=== PATIENT | female | born 1935 | race Caucasian/White ===

== ENCOUNTER 2018-02-02 13:59 | Inpatient (IN) | payer BC ==
[~2018-02-02] VITALS: Ht 170.2 cm; Wt 107.5 kg
[~2018-02-02 13:59] MED LIST: BENA20TA2 PO
[2018-02-02 14:00] VITALS: BP_SYST 164
[2018-02-02] MEDS ORDERED: NACL 0.9% 1,000 ML IV ONE ×2 (14:45)
[2018-02-02] MEDS ORDERED: VANCOMYCIN HCL 1,000 MG in D5W 250 ML IV ONE (14:45)
[2018-02-02] MEDS ORDERED: PIPERACILLIN/TAZO 3.38 GM in D5W 50 ML IV ONE (14:45)
[2018-02-02] MEDS ORDERED: VANCOMYCIN HCL 1000 MG/VIAL IV ONE (15:15)
[2018-02-02] MEDS ORDERED: PIPERACILLIN/TAZOBACTAM 3.375 GM/VIAL (ZOSYN) IV ONE (15:15)
[2018-02-02 15:33] LABS: BASOPHILS # (AUTO) 0.1 K/uL (0.0-0.2); BASOPHILS % (AUTO) 0.4 % (0.0-2.0); EOSINOPHILS # (AUTO) 0.1 K/uL (0.0-0.4); EOSINOPHILS % (AUTO) 0.9 % (0.0-4.0); HEMATOCRIT 38.6 % (36-48); HEMOGLOBIN 13.2 g/dL (12.0-16.0); LYMPHOCYTES # (AUTO) 1.1 K/uL (1.0-5.5); LYMPHOCYTES % (AUTO) 8.7 % (20.5-51.5); MEAN CORPUSCULAR HEMOGLOBIN 30 pg (27-31); MEAN CORPUSCULAR HGB CONC 34 % (32-36); MEAN CORPUSCULAR VOLUME 87 fL (79.0-98.0); MONOCYTES # (AUTO) 0.7 K/uL (0.0-1.0); MONOCYTES % (AUTO) 5.8 % (1.7-9.3); NEUTROPHILS # (AUTO) 10.8 K/uL (1.8-7.7); NEUTROPHILS % (AUTO) 84.2 % (40.0-70.0); PLATELET COUNT (AUTO) 345 K/uL (130-430); RED BLOOD CELL COUNT(AUTO) 4.45 MIL/uL (4.2-6.2); RED CELL DISTRIBUTION WIDTH 13.3 % (9.0-15.0); WHITE BLOOD COUNT (AUTO) 12.8 K/uL (4.8-10.8)
[2018-02-02 15:36] LABS: ANION GAP 10 (5-15); CALCIUM 8.8 mg/dL (8.4-11.0); CHLORIDE 105 mmol/L (98-107); CREATININE 0.84 mg/dL (0.55-1.30); GLUCOSE 147 mg/dL (70-99); POTASSIUM 3.9 mmol/L (3.5-5.1); SODIUM SERUM 139 mmol/L (136-145); UREA NITROGEN, BLOOD 19 mg/dL (8-21)
[2018-02-02 15:38] LABS: PROTHROMBIN TIME 9.8 SECS (9.5-12.5)
[2018-02-02 15:43] LABS: ALANINE AMINOTRANSFERASE 22 U/L (12-78); ALBUMIN 3.2 g/dL (3.4-4.8); ASPARTATE AMINOTRANSFERASE 20 U/L (10-37); LIPASE 150 U/L (73-393); TOTAL BILIRUBIN 0.5 mg/dL (0.0-1.0)
[2018-02-02] MEDS ORDERED: MULT-1117 (16:42)
[2018-02-02] MEDS ORDERED: VALS320T2 PO (16:42)
[2018-02-02] MEDS ORDERED: BISA-79 PO (16:42)
[2018-02-02] MEDS ORDERED: HYDR-1189 PO (16:42)
[2018-02-02] MEDS ORDERED: POTA20PA4 GT (16:42)
[2018-02-02] MEDS ORDERED: FURO-150 PO (16:42)
[2018-02-02] MEDS ORDERED: IBUP-2101 (16:42)
[2018-02-02] MEDS ORDERED: BENZOCAINE 20% 0.5mL UD SPRAY MM ONE (16:45)
[2018-02-02 17:27] VITALS: BP_SYST 173
[2018-02-02] MEDS ORDERED: cloNIDine HCL 0.1 MG TABLET PO PRN (18:15)
[2018-02-02] MEDS: D5NS 1,000 ML IV SCH (18:36)
[2018-02-02] MEDS: MORPHINE 2 MG/ML INJ. SYRINGE IVP PRN ×2 (19:06→22:23)
[2018-02-02 20:00] VITALS: BP_SYST 148
[2018-02-02] MEDS ORDERED: metroNIDAZOLE 500 mg/NS 200 ML IV ONE (21:09)
[2018-02-02] MEDS ORDERED: LEVOFLOXACIN 500 MG/D5W 100 ML IV ONE (21:10)
[2018-02-02] MEDS: LEVOFLOXACIN 500 MG/D5W 100 ML IV SCH (21:16)
[2018-02-02] MEDS: metroNIDAZOLE 500 mg/NS 100 ML IV SCH (22:20)
[2018-02-03 00:36] VITALS: BP_SYST 144
[2018-02-03] MEDS: D5NS 1,000 ML IV SCH ×2 (05:14→14:19)
[2018-02-03] MEDS: metroNIDAZOLE 500 mg/NS 100 ML IV SCH ×3 (05:14→22:02)
[2018-02-03] MEDS: MORPHINE 2 MG/ML INJ. SYRINGE IVP PRN ×3 (05:19→17:58)
[2018-02-03 08:05] VITALS: BP_SYST 154
[2018-02-03 12:14] VITALS: BP_SYST 155
[2018-02-03] MEDS ORDERED: LIDOCAINE TOPICAL OINT 5%, 35 GM TP PRN (15:45)
[2018-02-03 16:17] VITALS: BP_SYST 133
[2018-02-03 19:10] VITALS: BP_SYST 132
[2018-02-03] MEDS: LEVOFLOXACIN 500 MG/D5W 100 ML IV SCH (21:59)
[2018-02-03] MEDS: TEMAZEPAM 15 MG CAPSULE PO PRN (22:04)
[2018-02-04 00:53] VITALS: BP_SYST 147
[2018-02-04] MEDS: MORPHINE 2 MG/ML INJ. SYRINGE IVP PRN ×3 (02:22→22:39)
[2018-02-04] MEDS: metroNIDAZOLE 500 mg/NS 100 ML IV SCH ×3 (05:02→22:40)
[2018-02-04] MEDS: D5NS 1,000 ML IV SCH ×3 (05:09→20:15)
[2018-02-04] MEDS ORDERED: LIDOCAINE 1% 10 MG/ML, 50 ML MDV INJ ONE (08:30)
[2018-02-04 08:55] VITALS: BP_SYST 138
[2018-02-04 11:03] VITALS: BP_SYST 150
[2018-02-04 11:30] LABS: BASOPHILS # (AUTO) 0.1 K/uL (0.0-0.2); BASOPHILS % (AUTO) 0.8 % (0.0-2.0); EOSINOPHILS # (AUTO) 0.3 K/uL (0.0-0.4); HEMATOCRIT 38.7 % (36-48); HEMOGLOBIN 13.3 g/dL (12.0-16.0); LYMPHOCYTES # (AUTO) 1.4 K/uL (1.0-5.5); LYMPHOCYTES % (AUTO) 16.7 % (20.5-51.5); MEAN CORPUSCULAR HEMOGLOBIN 30 pg (27-31); MEAN CORPUSCULAR HGB CONC 34 % (32-36); MEAN CORPUSCULAR VOLUME 87 fL (79.0-98.0); MONOCYTES # (AUTO) 0.7 K/uL (0.0-1.0); MONOCYTES % (AUTO) 8.1 % (1.7-9.3); NEUTROPHILS # (AUTO) 6.2 K/uL (1.8-7.7); NEUTROPHILS % (AUTO) 70.4 % (40.0-70.0); PLATELET COUNT (AUTO) 323 K/uL (130-430); RED BLOOD CELL COUNT(AUTO) 4.44 MIL/uL (4.2-6.2); WHITE BLOOD COUNT (AUTO) 8.7 K/uL (4.8-10.8)
[2018-02-04 15:03] VITALS: BP_SYST 157
[2018-02-04 20:00] VITALS: BP_SYST 148; BP_SYST 149
[2018-02-04] MEDS: LEVOFLOXACIN 500 MG/D5W 100 ML IV SCH (21:11)
[2018-02-04] MEDS: TEMAZEPAM 15 MG CAPSULE PO PRN (22:40)
[2018-02-05] VITALS (16 sets, daily range): BP systolic 100–177
[2018-02-05] MEDS: D5NS 1,000 ML IV SCH ×2 (02:55→15:42)
[2018-02-05] MEDS: ACETAMINOPHEN 325 MG TABLET PO PRN (04:36)
[2018-02-05] MEDS: metroNIDAZOLE 500 mg/NS 100 ML IV SCH ×3 (05:04→21:36)
[2018-02-05 07:01] LABS: BILIRUBIN,URINE NEGATIVE (NEGATIVE); BLOOD, URINE NEGATIVE (NEGATIVE); CLARITY/URINE CLEAR (CLEAR); COLOR,URINE YELLOW (YELLOW); GLUCOSE,URINE NEGATIVE (NEGATIVE); KETONES,URINE NEGATIVE (NEGATIVE); LEUKOCYTE ESTERASE ,URINE NEGATIVE (NEGATIVE); NITRITE, URINE NEGATIVE (NEGATIVE); PH,URINE 5.5 (5.0-8.0); PROTEIN URINE NEGATIVE (NEGATIVE); UROBILINOGEN,URINE 0.2 (0.2-1.0)
[2018-02-05] MEDS ORDERED: GLYCOPYRROLATE 0.2 MG/ML VIAL IJ ONE (10:56)
[2018-02-05] MEDS ORDERED: KETOROLAC TROMETHAMINE 30 MG VIAL IVP ONE (10:56)
[2018-02-05] MEDS ORDERED: CEFAZOLIN 2 GM IVPB PREMIX 50 ML IV ONE (10:56)
[2018-02-05] MEDS ORDERED: ROCURONIUM BROMIDE 10 MG/ML (ZEMURON) IV ONE (10:56)
[2018-02-05] MEDS ORDERED: METOCLOPRAMIDE HCL 10 MG/2 ML VIAL IVP ONE (10:56)
[2018-02-05] MEDS ORDERED: LR 1,000 ML IV.SOLN IV ONE (10:56)
[2018-02-05] MEDS ORDERED: PROPOFOL 200MG/ 20ML VIAL (DIPRIVAN) IV ONE (10:56)
[2018-02-05] MEDS ORDERED: MIDAZOLAM HCL 5 MG/5 ML VIAL IVP ONE (10:56)
[2018-02-05] MEDS ORDERED: metroNIDAZOLE 500 mg/NS 100 mL IVPB IV ONE (10:56)
[2018-02-05] MEDS ORDERED: fentaNYL CITRATE/PF 100 MCG/2 ML AMP IVP ONE (10:56)
[2018-02-05] MEDS ORDERED: SEVOFLURANE 15 MIN GAS INH ONE (10:56)
[2018-02-05] MEDS ORDERED: DEXAMETHASONE SOD PHOSPHATE 4 MG/ML VIAL IVP ONE (10:56)
[2018-02-05] MEDS ORDERED: BUPIVACAINE /PF 0.5% 30 ML VIAL INJ ONE (10:56)
[2018-02-05] MEDS ORDERED: POLYMYXIN 500,000/BACIT.10,000 UNITS in NS IRR 1 L IR ONE (11:16)
[2018-02-05] MEDS ORDERED: IPRATROPIUM BROM 0.5 MG/2.5 ML VIAL.NEB (ATROVENT) INH ONE ×2 (13:06→13:15)
[2018-02-05] MEDS ORDERED: LevALBUTEROL HCL 1.25 MG/0.5 ML *CONC.* VIAL.NEB (XOPENEX CONC.) INH ONE (13:07)
[2018-02-05] MEDS ORDERED: LEVALBUTEROL HCL 0.63 MG/3 ML VIAL.NEB INH ONE (13:15)
[2018-02-05 13:42] LABS: ANION GAP 8 (5-15); CALCIUM 8.6 mg/dL (8.4-11.0); CHLORIDE 105 mmol/L (98-107); CREATININE 0.71 mg/dL (0.55-1.30); GLUCOSE 127 mg/dL (70-99); SODIUM SERUM 137 mmol/L (136-145); UREA NITROGEN, BLOOD 9 mg/dL (8-21)
[2018-02-05] MEDS ORDERED: fentaNYL CITRATE/PF 100 MCG/2 ML AMP IVP PRN (13:45)
[2018-02-05] MEDS ORDERED: fentaNYL CITRATE/PF 100 MCG/2 ML AMP ONE (13:54)
[2018-02-05] MEDS ORDERED: MIDAZOLAM HCL 2 MG/2 ML VIAL (VERSED) ONE (14:22)
[2018-02-05] MEDS ORDERED: LORazepam 2 MG/ML VIAL ONE (14:57)
[2018-02-05] MEDS ORDERED: MORPHINE 2 MG/ML INJ. SYRINGE ONE ×2 (14:58→16:42)
[2018-02-05] MEDS ORDERED: ONDANSETRON HCL 4 MG/2 ML VIAL IVP ONE (15:15)
[2018-02-05] MEDS ORDERED: LABETALOL 100 MG/ 20ML VIAL IVP PRN (15:15)
[2018-02-05] MEDS ORDERED: MIDAZOLAM HCL 2 MG/2 ML VIAL (VERSED) IVP PRN (15:15)
[2018-02-05] MEDS ORDERED: ONDANSETRON HCL 4 MG/2 ML VIAL IVP PRN (15:30)
[2018-02-05] MEDS ORDERED: LORazepam 2 MG/ML VIAL IVP PRN (17:15)
[2018-02-05] MEDS: MORPHINE 2 MG/ML INJ. SYRINGE IVP PRN ×3 (18:33→23:23)
[2018-02-05] MEDS: FAMOTIDINE PF 20 MG/2 ML VIAL IVP SCH (21:24)
[2018-02-05] MEDS: LEVOFLOXACIN 500 MG/D5W 100 ML IV SCH (21:31)
[2018-02-06] VITALS (19 sets, daily range): BP systolic 122–164
[2018-02-06] MEDS: MORPHINE 2 MG/ML INJ. SYRINGE IVP PRN ×4 (02:06→22:41)
[2018-02-06] MEDS: D5NS 1,000 ML IV SCH ×3 (02:15→22:15)
[2018-02-06 05:53] LABS: BASOPHILS # (AUTO) 0.1 K/uL (0.0-0.2); BASOPHILS % (AUTO) 0.6 % (0.0-2.0); EOSINOPHILS % (AUTO) 0.3 % (0.0-4.0); HEMATOCRIT 36.5 % (36-48); HEMOGLOBIN 12.7 g/dL (12.0-16.0); LYMPHOCYTES # (AUTO) 1.4 K/uL (1.0-5.5); LYMPHOCYTES % (AUTO) 13.5 % (20.5-51.5); MEAN CORPUSCULAR HEMOGLOBIN 30 pg (27-31); MEAN CORPUSCULAR HGB CONC 35 % (32-36); MEAN CORPUSCULAR VOLUME 87 fL (79.0-98.0); MONOCYTES # (AUTO) 0.9 K/uL (0.0-1.0); MONOCYTES % (AUTO) 8.7 % (1.7-9.3); NEUTROPHILS # (AUTO) 7.7 K/uL (1.8-7.7); NEUTROPHILS % (AUTO) 76.9 % (40.0-70.0); PLATELET COUNT (AUTO) 298 K/uL (130-430); RED BLOOD CELL COUNT(AUTO) 4.19 MIL/uL (4.2-6.2); RED CELL DISTRIBUTION WIDTH 13.1 % (9.0-15.0); WHITE BLOOD COUNT (AUTO) 10.1 K/uL (4.8-10.8)
[2018-02-06] MEDS: metroNIDAZOLE 500 mg/NS 100 ML IV SCH ×3 (06:11→22:33)
[2018-02-06] MEDS: FAMOTIDINE PF 20 MG/2 ML VIAL IVP SCH ×2 (08:12→20:49)
[2018-02-06 08:21] LABS: ALANINE AMINOTRANSFERASE 46 U/L (12-78); ALBUMIN 2.7 g/dL (3.4-4.8); ANION GAP 12 (5-15); ASPARTATE AMINOTRANSFERASE 29 U/L (10-37); CALCIUM 8.5 mg/dL (8.4-11.0); CHLORIDE 104 mmol/L (98-107); CREATININE 1.04 mg/dL (0.55-1.30); GLUCOSE 115 mg/dL (70-99); POTASSIUM 3.8 mmol/L (3.5-5.1); SODIUM SERUM 139 mmol/L (136-145); TOTAL BILIRUBIN 0.7 mg/dL (0.0-1.0); UREA NITROGEN, BLOOD 15 mg/dL (8-21)
[2018-02-06] MEDS ORDERED: FUROSEMIDE 20 MG/2 ML VIAL IVP ONE (09:15)
[2018-02-06] MEDS: ACETAMINOPHEN 325 MG TABLET PO PRN (13:55)
[2018-02-06] MEDS: LEVOFLOXACIN 500 MG/D5W 100 ML IV SCH (20:48)
[2018-02-07 00:08] VITALS: BP_SYST 123; BP_SYST 145
[2018-02-07] MEDS: metroNIDAZOLE 500 mg/NS 100 ML IV SCH ×2 (05:09→13:09)
[2018-02-07] MEDS: D5NS 1,000 ML IV SCH (05:09)
[2018-02-07 08:02] VITALS: BP_SYST 149
[2018-02-07] MEDS ORDERED: MINERAL OIL 30 ML UDC PO SCH (09:00)
[2018-02-07] MEDS ORDERED: POLYETHYLENE GLYCOL 3350, 17 GM/ POWD.PACK PO SCH (09:00)
[2018-02-07] MEDS: FAMOTIDINE PF 20 MG/2 ML VIAL IVP SCH (09:54)
[2018-02-07] MEDS: MORPHINE 2 MG/ML INJ. SYRINGE IVP PRN (13:07)
[2018-02-07 15:14] VITALS: BP_SYST 158
[2018-02-07] MEDS ORDERED: POLY17PO4 PO (16:47)
[2018-02-07] MEDS ORDERED: LEVO250T2 PO (16:48)
[2018-02-07] MEDS ORDERED: METR500T PO (16:49)
[2018-02-07 16:55] VITALS: BP_SYST 158
== END 2018-02-07 17:25 | disposition home health service (06) | DRG 356 ==
LOC: SED 13:59 → SMU 16:50 → SIC 02-05 14:50 → STU 02-06 14:53 → SMU 02-07 10:16
PROVIDERS: ADMIT Internal Medicine Hospice and Palliative Medicine; ATTEND Internal Medicine Hospice and Palliative Medicine
PROC: 0BH17EZ Insertion of Endotracheal Airway into Trachea, Via Natural or Artificial Opening (ICD-10-PCS; 2018-02-05)
PROC: 5A1935Z Respiratory Ventilation, Less than 24 Consecutive Hours (ICD-10-PCS; 2018-02-05)
PROC: 0W9F0ZZ Drainage of Abdominal Wall, Open Approach (ICD-10-PCS; principal; 2018-02-05 11:00)
PROC: 0DBQ8ZZ Excision of Anus, Via Natural or Artificial Opening Endoscopic (ICD-10-PCS; 2018-02-05 11:00)
DX: K64.0 First degree hemorrhoids (principal); J96.01 Acute respiratory failure with hypoxia; K92.2 Gastrointestinal hemorrhage, unspecified; K52.1 Toxic gastroenteritis and colitis; I10 Essential (primary) hypertension; E66.01 Morbid (severe) obesity due to excess calories; E11.9 Type 2 diabetes mellitus without complications; K60.2 Anal fissure, unspecified; K62.0 Anal polyp; K64.4 Residual hemorrhoidal skin tags; T39.395A Adverse effect of other nonsteroidal anti-inflammatory drugs [NSAID], initial encounter; S30.1XXA Contusion of abdominal wall, initial encounter; R19.00 Intra-abdominal and pelvic swelling, mass and lump, unspecified site; X58.XXXA Exposure to other specified factors, initial encounter; Y93.89 Activity, other specified; Y99.8 Other external cause status; Y92.89 Other specified places as the place of occurrence of the external cause; Z85.038 Personal history of other malignant neoplasm of large intestine; Z90.49 Acquired absence of other specified parts of digestive tract; Z68.37 Body mass index [BMI] 37.0-37.9, adult
CPT/HCPCS: 36415; 36600; 71045; 76942-TC; 80048; 80053; 81003; 82803-TC; 83051; 83605; 83690-TC; 83880; 84484; 85025; 85610-TC; 85730-TC; 87040-TC; 87070-TC; 87081; 87205-TC; 88108; 88304; 88305; 93005; 93306; 94002; 94003; 94640; 94760; 97116-GP; 97530-GP; J0690; J1100; J1885; J1940; J1956; J2001; J2060; J2250; J2270; J2405; J2543; J2704; J2765; J3010; J3370; J3465; J3490; J7030; J7042; J7120; J7612

== ENCOUNTER 2019-04-19 05:39 | Observation (INO) | payer BC ==
[~2019-04-19] VITALS: Ht 170.2 cm; Wt 98.4 kg
[~2019-04-19 05:39] MED LIST changes: -BENA20TA2 PO; +BENA20TA9 PO; +BISA-79 PO; +FURO-150 PO; +HYDR-1189 PO; +LEVO250T2 PO; +METR500T PO; +MULT-1117; +POLY17PO4 PO; +POTA20PA4 PO; +VALS320T2 PO
[2019-04-19 05:42] VITALS: BP_SYST 188
--- NOTE | 2019-04-19 05:43 | NUR ---
Placed in room 1 . Placed on monitoring and evaluation advisor, blood pressure machine and pulse oximeter. To gown for exam. Side rails up. Report given to Hiram HENRY.
--- NOTE | 2019-04-19 06:00 | NUR ---
Pt came into ER from house around the corner, C/O SOB associated with chest pain radiating from left shoulder down across chest for few weeks. Finally couldn't stand it any longer. No other complaints and or injuries noted. VSS, no s/s of further acute distress. Resting on gurney rails up
--- NOTE | 2019-04-19 06:20 | NUR ---
Portable X Ray bedside, well tolerated
[2019-04-19 06:22] LABS: BASOPHILS # (AUTO) 0.1 K/uL (0.0-0.2); EOSINOPHILS # (AUTO) 0.7 K/uL (0.0-0.4); EOSINOPHILS % (AUTO) 9.3 % (0.0-4.0); HEMATOCRIT 42.1 % (36-48); HEMOGLOBIN 14.6 g/dL (12.0-16.0); LYMPHOCYTES # (AUTO) 1.8 K/uL (1.0-5.5); MEAN CORPUSCULAR HEMOGLOBIN 30 pg (27-31); MEAN CORPUSCULAR HGB CONC 35 % (32-36); MEAN CORPUSCULAR VOLUME 88 fL (79.0-98.0); MONOCYTES # (AUTO) 0.7 K/uL (0.0-1.0); MONOCYTES % (AUTO) 9.9 % (1.7-9.3); NEUTROPHILS # (AUTO) 3.8 K/uL (1.8-7.7); NEUTROPHILS % (AUTO) 53.8 % (40.0-70.0); PLATELET COUNT (AUTO) 266 K/uL (130-430); RED BLOOD CELL COUNT(AUTO) 4.79 MIL/uL (4.2-6.2); RED CELL DISTRIBUTION WIDTH 13.9 % (9.0-15.0); WHITE BLOOD COUNT (AUTO) 7.1 K/uL (4.8-10.8)
--- NOTE | 2019-04-19 06:37 | NUR ---
Dr. Tao bedside for Pt eval
[2019-04-19 06:43] LABS: ANION GAP 9 (5-15); CALCIUM 9.5 mg/dL (8.4-11.0); CHLORIDE 106 mmol/L (98-107); CREATININE 0.76 mg/dL (0.55-1.30); GLUCOSE 95 mg/dL (70-99); POTASSIUM 4.1 mmol/L (3.5-5.1); SODIUM SERUM 142 mmol/L (136-145); UREA NITROGEN, BLOOD 25 mg/dL (8-21)
[2019-04-19 06:45] LABS: PROTHROMBIN TIME 9.9 SECS (9.5-12.5)
[2019-04-19] MEDS ORDERED: NITROGLYCERIN 0.4 MG TAB.SUBL SL ONE (06:45)
[2019-04-19 06:48] LABS: ALANINE AMINOTRANSFERASE 24 U/L (12-78); ALBUMIN 3.4 g/dL (3.4-4.8); ASPARTATE AMINOTRANSFERASE 16 U/L (10-37); TOTAL BILIRUBIN 0.7 mg/dL (0.0-1.0)
--- NOTE | 2019-04-19 06:53 | NUR ---
1st dose adm of nitro, well tolerated. Will check for effectiveness in 5 min
[2019-04-19] MEDS ORDERED: IOHEXOL 350 mgI/mL, 150 ML INFUS..BTL IV ONE (08:16)
--- NOTE | 2019-04-19 08:29 | NUR ---
PT BACK FROM CT IN STABLE CONDITION.
[2019-04-19] MEDS ORDERED: KETOROLAC TROMETHAMINE 30 MG VIAL IVP ONE (09:45)
[2019-04-19] MEDS ORDERED: GABA-529 PO (09:59)
[2019-04-19] MEDS ORDERED: OCUVITE PO (09:59)
[2019-04-19] MEDS ORDERED: MELA3TAB64 PO (09:59)
[2019-04-19] MEDS ORDERED: LOSA100T3 PO (09:59)
[2019-04-19] MEDS ORDERED: [UNRECOGNIZED DRUG - CODE] PO (09:59)
[2019-04-19] MEDS ORDERED: SENN8.6T19 PO (09:59)
--- NOTE | 2019-04-19 09:59 | NUR ---
Medication reconciliation completed with information provided by Patient. Any prior medication reconciliation on file was reviewed and corrected.
[2019-04-19] MEDS ORDERED: ASPIRIN 81 MG TAB.CHEW PO ONE (10:15)
--- NOTE | 2019-04-19 10:16 | NUR ---
Patient will be admitted to care of DR. HANNA. Admitted to TELE unit. Belongings list completed. Summary report printed. Report will be given at bedside.
--- NOTE | 2019-04-19 10:45 | NUR ---
Transfer to TELE via ACLS protocol. Licensed nurse present. IV present no signs or symptoms of infiltration.
[2019-04-19 10:47] VITALS: BP_SYST 169
--- NOTE | 2019-04-19 10:47 | NUR ---
ADMISSION NOTE Received patient from ER via aime, received report from CHINYERE HENRY. Patient admitted with diagnosis of CHEST PAIN. Patient oriented to hospital routine, call light, toileting and safety-patient verbalized understanding.
--- NOTE | 2019-04-19 10:50 | NUR ---
REPORT GIVEN TO RN LEVY AT BEDSIDE.
--- NOTE | 2019-04-19 11:00 | NUR ---
ASSUMPTION OF CARE: RECEIVED PT A/A/OX4, DX:DECREASED CARDIAC OUTPUT, R/T CHEST PAIN, VSS, NO C/O PAIN OR DISCOMFORT, BREATH SOUNDS ARE CLEAR, BREATHING UNLABORED, PULSES PALPABLE, IV SITE INTACT, PATENT, NO REDNESS OR SWELLING, ORIENTED TO UNIT, CALL LIGHT PLACED WITHIN REACH, WILL CON'T TO MONITOR AND ASSESS.
[2019-04-19] MEDS ORDERED: GABAPENTIN 100 MG CAPSULE PO ONE (11:15)
[2019-04-19] MEDS ORDERED: LOSARTAN POTASSIUM 50 MG TABLET (COZAAR) PO ONE (11:15)
[2019-04-19] MEDS ORDERED: FUROSEMIDE 40 MG TABLET PO ONE (11:15)
[2019-04-19 12:20] VITALS: BP_SYST 169
--- NOTE | 2019-04-19 12:41 | NUR ---
Cardiac consult called: for Dr. Nur, regarding chest pain, ordered by Dr. Trinh, spoke with Dior.
--- NOTE | 2019-04-19 14:16 | NUR ---
Bone Char Puller Note Patient referred for help with completing an advanced directive. STEEL ERECTOR met with patient at bedside. Patient is alert and oriented. Patient has no family members to make decisions on her behalf. Her son is alive and may have an old POA for health care but does not communicate with patient at all. Patient is certain she would like a DNR order as indicated on this medical record. A POLST would seem to be the best document for patient to complete. Discussed and assisted patient with completion. Left a copy in the front of the chart for Dr Trinh to discuss and sign. Patient lives alone and drives. She would not qualify for [facility] because her income is too high. Patient is lonely. Goes to meetings at congregation a few times a week. STEEL ERECTOR [facility]. Patient has some anxiety and pain. Discussed relaxation and breathing exercises to reduce anxiety and pain, in addition to any medications that may be prescribed. Gave patient my business card. Bone Char Puller will remain available.
--- NOTE | 2019-04-19 15:00 | NUR ---
NURSES NOTES: PT RESTING IN POSITION OF COMFORT, NO S/S OF DISCOMFORT, NO C/O PAIN, ORIENTED TO UNIT, CALL LIGHT PLACED WITHIN REACH, WILL CONT' TO MONITOR AND ASSESS.
[2019-04-19 16:31] VITALS: BP_SYST 154
--- NOTE | 2019-04-19 17:00 | NUR ---
NURSES NOTES: PT REMAINS STABLE, NO SIGNIFICANT CHANGES NOTED, NO C/O PAIN, CALL LIGH PLACED WITHIN REACH, WILL CONT' TO MONITOR AND ASSESS.
--- NOTE | 2019-04-19 19:00 | NUR ---
END OF SHIFT: PT ASLEEP, EASILY AROUSED VIA VERBAL STIMULI, NO C/O PAIN, VSS, EATING WELL, NO DISTRESS, WILL CONT' WITH POC, WILL ENDORSE TO ANIMAL KILLER NURSE.
--- NOTE | 2019-04-19 19:24 | NUR ---
OPENING NOTES Received patient resting in bed, HOB elevated. No signs of acute respiratory distress. Patient requests for pain medication and sleeping pill. Bed alarm refused after patient education on risks and benefits of bed alarm. Bed at lowest position, call light within reach. Oriented patient to plan of care and call light usage. Will continue to monitor.
--- NOTE | 2019-04-19 20:27 | NUR ---
PAGED PAGED DOCTOR HUMPHREY
--- NOTE | 2019-04-19 20:38 | NUR ---
SPOKE TO DR. MCALLISTER. RECEIVED NEW ORDERS FOR TORADOL FOR PAIN AND NO SLEEPING MEDICATIONS, DR. HANNA HELD PATIENT'S MEDICATIONS FOR SLEEP.
[2019-04-19] MEDS: GABAPENTIN 100 MG CAPSULE PO SCH (20:56)
[2019-04-19] MEDS ORDERED: KETOROLAC TROMETHAMINE 15 MG VIAL IVP SCH (21:00)
--- NOTE | 2019-04-19 22:10 | NUR ---
Patient is resting, watching television. Patient seems forgetful and asks again for sleeping medication. Reoriented patient to reason for not being able to give sleeping medication. No signs of acute respiratory distress. Will continue to monitor.
--- NOTE | 2019-04-20 00:16 | NUR ---
Patient is awake, watching television. No signs of acute respiratory distress. Will continue to monitor.
[2019-04-20 01:18] VITALS: BP_SYST 157
--- NOTE | 2019-04-20 02:10 | NUR ---
Patient is resting, eyes closed. No signs of acute respiratory distress. Bed alarm on, call light within reach, bed at lowest position. Will continue to monitor.
--- NOTE | 2019-04-20 04:15 | NUR ---
Patient is asleep comfortably, rise and fall of chest noted. No signs of acute respiratory distress. Will continue to monitor.
--- NOTE | 2019-04-20 07:03 | NUR ---
CLOSING NOTES Patient is resting, watching television. Patient has no signs of acute respiratory distress or SOB at this time. Bed alarm refused after patient verbally understands risks and benefits. Bed at lowest position, call light within reach. All needs met throughout shift. Will endorse care to oncoming shift.
--- NOTE | 2019-04-20 07:55 | NUR ---
INITIAL NOTE RECEIVED PT IN BED, NO S/S OF DISTRESS OR SOB NOTED, PT HAS NO C/O PAIN AT THIS TIME, PT IN STABLE CONDITION. PT AAOX4, VERBAL. IV CATHETER PATENT, NO SIGNS OF INFECTION OR INFILTRATION NOTED, SALINE LOCK. BED AT LOWEST POSITION, CALL LIGHT WITHIN REACH, WILL CONTINUE TO MONITOR PT FOR ANY CHANGES, FALL AND SAFETY PRECAUTIONS IN PLACE.
[2019-04-20 08:25] VITALS: BP_SYST 151
[2019-04-20] MEDS: GABAPENTIN 100 MG CAPSULE PO SCH (08:26)
[2019-04-20] MEDS ORDERED: LOSARTAN POTASSIUM 50 MG TABLET (COZAAR) PO SCH (09:00)
[2019-04-20] MEDS ORDERED: FUROSEMIDE 40 MG TABLET PO SCH (09:00)
--- NOTE | 2019-04-20 10:05 | NUR ---
Nutrition Update Jorge Alberto Scale 17 noted. Pt admitted for chest pain. Diet: 2 gm Na BMI: 34 kg/m2 RD to follow per nutrition care standards.
--- NOTE | 2019-04-20 10:10 | NUR ---
ROUNDS PT IN BED, NO S/S OF DISTRESS OR SOB NOTED, PT HAS NO C/O PAIN AT THIS TIME, PT IN STABLE CONDITION, PT RESTING COMFORTABLY, WILL CONTINUE TO MONITOR PT FOR ANY CHANGES.
[2019-04-20 10:26] VITALS: BP_SYST 131
--- NOTE | 2019-04-20 11:00 | NUR ---
D/C Patient Patient given medication reconciliation form and D/C instructions. Exit Care provided. Patient verbalized understanding. MD discussed with patient the results and treatment provided. Ambulatory with assist for discharge to home. Patient in stable condition, ID band removed. IV catheter removed, intact and dressing applied, no active bleeding. Patient educated on pain management. All belongings sent with patient.Patient's medicaiton given back to her. Pt driving her self home and Dr Trinh and charge nurse made aware.
== END 2019-04-20 11:00 | disposition home or self-care (01) ==
LOC: SED 05:39 → STU 10:12
PROVIDERS: ADMIT Internal Medicine Hospice and Palliative Medicine; ATTEND Internal Medicine Hospice and Palliative Medicine
DX: R07.89 Other chest pain (principal); I10 Essential (primary) hypertension; F17.200 Nicotine dependence, unspecified, uncomplicated; Z86.73 Personal history of transient ischemic attack (TIA), and cerebral infarction without residual deficits; Z98.890 Other specified postprocedural states
CPT/HCPCS: 36415; 71045; 71275; 80053; 83880; 84484; 85025; 85379; 85610; 85730; 93005; 93306; 96374; 96376; 99285; G0378 ×2; J1885 ×2; Q9967

== ENCOUNTER 2021-01-15 06:08 | Emergency (ER) | payer BC ==
[~2021-01-15] VITALS: Ht 170.2 cm; Wt 104.3 kg
[~2021-01-15 06:08] MED LIST changes: -BENA20TA9 PO; -BISA-79 PO; +GABA-529 PO; -HYDR-1189 PO; -LEVO250T2 PO; +LOSA100T3 PO; +MELA3TAB41 PO; -METR500T PO; -MULT-1117; +OCUVITE PO; -POLY17PO4 PO; +SENN8.6T19 PO; -VALS320T2 PO; +[UNRECOGNIZED DRUG - CODE] PO
[2021-01-15 06:12] VITALS: BP_SYST 150
[2021-01-15] MEDS ORDERED: IBUP-1969 PO (06:35)
[2021-01-15] MEDS ORDERED: HYDR-3917 PO (06:49)
[2021-01-15 07:16] VITALS: BP_SYST 150
== END 2021-01-15 07:16 | disposition home or self-care (01) ==
LOC: SED 06:08
DX: G89.29 Other chronic pain (principal); I10 Essential (primary) hypertension; Z79.899 Other long term (current) drug therapy
CPT/HCPCS: 99283

== ENCOUNTER 2021-02-20 12:00 | Emergency (ER) | payer BC ==
[~2021-02-20] VITALS: Ht 170.2 cm; Wt 99.8 kg
[2021-02-20 12:05] VITALS: BP_SYST 111
[2021-02-20] MEDS ORDERED: LIDOINT TP (13:57)
[2021-02-20] MEDS ORDERED: DOCU-144 PO (13:57)
[2021-02-20] MEDS ORDERED: MAGNESIUM CITRATE 300 ML ORAL SOLUTION PO ONE (14:00)
[2021-02-20] MEDS ORDERED: DOCUSATE SODIUM 100 MG CAPSULE PO ONE (14:00)
[2021-02-20 14:26] VITALS: BP_SYST 111
== END 2021-02-20 14:27 | disposition home or self-care (01) ==
LOC: SED 12:00
DX: K64.4 Residual hemorrhoidal skin tags (principal); K59.09 Other constipation; I10 Essential (primary) hypertension; Z79.899 Other long term (current) drug therapy
CPT/HCPCS: 99283

== ENCOUNTER 2021-02-24 10:31 | Emergency (ER) | payer BC ==
[~2021-02-24] VITALS: Ht 170.2 cm; Wt 99.8 kg
[~2021-02-24 10:31] MED LIST changes: +DOCU-144 PO; +LIDOINT TP
[2021-02-24 11:21] VITALS: BP_SYST 165
[2021-02-24] MEDS ORDERED: MAGN296S30 PO (11:38)
[2021-02-24 12:00] VITALS: BP_SYST 152
== END 2021-02-24 12:00 | disposition home or self-care (01) ==
LOC: SED 10:31
DX: K59.00 Constipation, unspecified (principal); I10 Essential (primary) hypertension; Z79.899 Other long term (current) drug therapy
CPT/HCPCS: 99282

== ENCOUNTER 2023-04-15 11:52 | Inpatient (IN) | payer BC ==
[~2023-04-15] VITALS: Ht 170.2 cm; Wt 103.4 kg
[~2023-04-15 11:52] MED LIST changes: +LOSA-415 PO; -LOSA100T3 PO; +MAGN296S8 PO
[2023-04-15 11:54] VITALS: BP_SYST 208; PULSE 109; RESP 18; TEMP 97; O2SAT 98
[2023-04-15] MEDS ORDERED: NACL 0.9% 1,000 ML IV ONE (12:30)
[2023-04-15 13:15] LABS: ANION GAP 7 (5-15); CALCIUM 9.6 mg/dL (8.4-11.0); CARBON DIOXIDE 29 mmol/L (23-29); CHLORIDE 105 mmol/L (98-107); CREATININE 0.65 mg/dL (0.55-1.30); GLUCOSE 91 mg/dL (74-106); POTASSIUM 3.7 mmol/L (3.5-5.1); SODIUM SERUM 141 mmol/L (136-145); UREA NITROGEN, BLOOD 11 mg/dL (8-21)
[2023-04-15 13:17] LABS: BASOPHILS # (AUTO) 0.1 K/uL (0.0-0.2); BASOPHILS % (AUTO) 0.6 % (0.0-2.0); EOSINOPHILS # (AUTO) 0.2 K/uL (0.0-0.4); EOSINOPHILS % (AUTO) 2.5 % (0.0-4.0); HEMOGLOBIN 15.8 g/dL (12.0-16.0); LYMPHOCYTES # (AUTO) 1.4 K/uL (1.0-5.5); LYMPHOCYTES % (AUTO) 16.3 % (20.5-51.5); MEAN CORPUSCULAR HEMOGLOBIN 29 pg (27-31); MEAN CORPUSCULAR HGB CONC 34 % (32-36); MEAN CORPUSCULAR VOLUME 86 fL (79.0-98.0); MONOCYTES # (AUTO) 0.7 K/uL (0.0-1.0); MONOCYTES % (AUTO) 8.1 % (1.7-9.3); NEUTROPHILS # (AUTO) 6.3 K/uL (1.8-7.7); NEUTROPHILS % (AUTO) 72.5 % (40.0-70.0); PLATELET COUNT (AUTO) 291 K/uL (130-430); RED BLOOD CELL COUNT(AUTO) 5.49 MIL/uL (4.2-6.2); RED CELL DISTRIBUTION WIDTH 13.8 % (9.0-15.0); WHITE BLOOD COUNT (AUTO) 8.7 K/uL (4.8-10.8)
[2023-04-15] MEDS ORDERED: LABETALOL HCL 20 MG/4 ML CARTRIDGE IVP ONE (16:15)
[2023-04-15] MEDS ORDERED: hydrALAZINE HCL 20 MG/ML VIAL IVP ONE (17:00)
[2023-04-15] MEDS ORDERED: HYDR12.585 PO (18:03)
[2023-04-15] MEDS ORDERED: TRAZ-251 PO (18:03)
[2023-04-15] MEDS ORDERED: IBUP-1969 PO (18:03)
[2023-04-15] MEDS ORDERED: ESCI20TA38 PO (18:03)
[2023-04-15] MEDS ORDERED: ROSU10TA29 PO (18:03)
[2023-04-15 20:54] VITALS: BP_SYST 155; PULSE 87; RESP 20; TEMP 98.4; O2SAT 95
[2023-04-15] MEDS: NIFEdipine 30 MG TAB.ER.24 PO SCH (22:32)
[2023-04-15] MEDS: HYDROcodone/ACETAMIN 5-325 MG TAB (NORCO/ VICODIN) PO PRN (22:33)
[2023-04-16 00:45] VITALS: BP_SYST 149; PULSE 64; RESP 18; TEMP 96.8; O2SAT 94
[2023-04-16 08:00] VITALS: BP_SYST 127; PULSE 102; RESP 18; TEMP 98.4; O2SAT 97
[2023-04-16] MEDS: NIFEdipine 30 MG TAB.ER.24 PO SCH (08:52)
[2023-04-16] MEDS: HYDROcodone/ACETAMIN 5-325 MG TAB (NORCO/ VICODIN) PO PRN (08:53)
[2023-04-16] MEDS ORDERED: MECLIZINE HCL 25 MG TABLET (ANITVERT) PO ONE (10:45)
[2023-04-16 12:30] VITALS: BP_SYST 141; PULSE 72; RESP 17; TEMP 96.2; O2SAT 93
[2023-04-16 16:37] VITALS: BP_SYST 135; PULSE 74; RESP 17; TEMP 97.3; O2SAT 94
[2023-04-16] MEDS ORDERED: TRAZ-251 PO (19:43)
[2023-04-16] MEDS ORDERED: hydrALAZINE HCL 20 MG/ML VIAL IVP PRN (19:45)
[2023-04-16 20:00] VITALS: O2SAT 95
[2023-04-16] MEDS ORDERED: ZOLPIDEM TARTRATE 5 MG TABLET PO PRN (20:00)
[2023-04-16] MEDS ORDERED: traZODone HCL 50 MG TABLET (DESYREL) PO PRN (20:00)
[2023-04-16 20:45] VITALS: BP_SYST 147; PULSE 75; RESP 20; TEMP 97.8; O2SAT 95
[2023-04-16] MEDS: MECLIZINE HCL 25 MG TABLET (ANITVERT) PO SCH (20:55)
[2023-04-16] MEDS: LOSARTAN POTASSIUM 50 MG TABLET (COZAAR) PO SCH (20:56)
[2023-04-16] MEDS: NACL 0.9% 1,000 ML IV SCH (21:00)
[2023-04-17] VITALS: BP_SYST 129; PULSE 80; RESP 20; TEMP 98.3; O2SAT 92
[2023-04-17] MEDS: NACL 0.9% 1,000 ML IV SCH ×2 (05:32→15:49)
[2023-04-17] MEDS: HYDROcodone/ACETAMIN 5-325 MG TAB (NORCO/ VICODIN) PO PRN ×2 (06:37→19:50)
[2023-04-17 07:40] VITALS: BP_SYST 157; PULSE 84; RESP 18; TEMP 97.3; O2SAT 95
[2023-04-17] MEDS: NIFEdipine 30 MG TAB.ER.24 PO SCH (08:33)
[2023-04-17] MEDS: LOSARTAN POTASSIUM 50 MG TABLET (COZAAR) PO SCH (08:34)
[2023-04-17] MEDS: MECLIZINE HCL 25 MG TABLET (ANITVERT) PO SCH ×2 (08:34→20:45)
[2023-04-17 11:21] LABS: BASOPHILS % (AUTO) 0.6 % (0.0-2.0); EOSINOPHILS # (AUTO) 0.3 K/uL (0.0-0.4); EOSINOPHILS % (AUTO) 3.8 % (0.0-4.0); HEMATOCRIT 44.5 % (36-48); HEMOGLOBIN 14.7 g/dL (12.0-16.0); LYMPHOCYTES # (AUTO) 1.6 K/uL (1.0-5.5); LYMPHOCYTES % (AUTO) 22.1 % (20.5-51.5); MEAN CORPUSCULAR HEMOGLOBIN 29 pg (27-31); MEAN CORPUSCULAR HGB CONC 33 % (32-36); MEAN CORPUSCULAR VOLUME 86 fL (79.0-98.0); MONOCYTES # (AUTO) 0.7 K/uL (0.0-1.0); MONOCYTES % (AUTO) 9.8 % (1.7-9.3); NEUTROPHILS # (AUTO) 4.6 K/uL (1.8-7.7); NEUTROPHILS % (AUTO) 63.7 % (40.0-70.0); PLATELET COUNT (AUTO) 304 K/uL (130-430); RED BLOOD CELL COUNT(AUTO) 5.16 MIL/uL (4.2-6.2); RED CELL DISTRIBUTION WIDTH 13.6 % (9.0-15.0); WHITE BLOOD COUNT (AUTO) 7.2 K/uL (4.8-10.8)
[2023-04-17 11:37] LABS: ALANINE AMINOTRANSFERASE 25 U/L (12-78); ALBUMIN 2.8 g/dL (3.4-4.8); ANION GAP 7 (5-15); ASPARTATE AMINOTRANSFERASE 16 U/L (10-37); CALCIUM 8.8 mg/dL (8.4-11.0); CARBON DIOXIDE 26 mmol/L (23-29); CHLORIDE 103 mmol/L (98-107); CREATININE 0.58 mg/dL (0.55-1.30); GLUCOSE 100 mg/dL (74-106); POTASSIUM 3.8 mmol/L (3.5-5.1); SODIUM SERUM 136 mmol/L (136-145); TOTAL BILIRUBIN 0.9 mg/dL (0.0-1.0); TOTAL PROTEIN, SERUM 5.9 g/dL (6.4-8.3); UREA NITROGEN, BLOOD 15 mg/dL (8-21)
[2023-04-17 12:16] VITALS: BP_SYST 164; PULSE 83; RESP 17; TEMP 97.6; O2SAT 94
[2023-04-17 17:49] VITALS: BP_SYST 151; PULSE 81; RESP 17; TEMP 98.7; O2SAT 95
[2023-04-17 20:00] VITALS: BP_SYST 143; PULSE 83; RESP 18; TEMP 98.4; O2SAT 94
[2023-04-18] VITALS: BP_SYST 138; PULSE 94; RESP 18; TEMP 97.7; O2SAT 93
[2023-04-18 01:12] VITALS: O2SAT 96
[2023-04-18] MEDS: HYDROcodone/ACETAMIN 5-325 MG TAB (NORCO/ VICODIN) PO PRN ×3 (01:52→21:31)
[2023-04-18] MEDS: NACL 0.9% 1,000 ML IV SCH ×2 (01:53→11:45)
[2023-04-18 04:52] LABS: BASOPHILS # (AUTO) 0.1 K/uL (0.0-0.2); BASOPHILS % (AUTO) 0.7 % (0.0-2.0); EOSINOPHILS # (AUTO) 0.4 K/uL (0.0-0.4); EOSINOPHILS % (AUTO) 4.3 % (0.0-4.0); HEMATOCRIT 44.2 % (36-48); HEMOGLOBIN 14.4 g/dL (12.0-16.0); LYMPHOCYTES # (AUTO) 1.5 K/uL (1.0-5.5); LYMPHOCYTES % (AUTO) 17.6 % (20.5-51.5); MEAN CORPUSCULAR HEMOGLOBIN 28 pg (27-31); MEAN CORPUSCULAR HGB CONC 33 % (32-36); MEAN CORPUSCULAR VOLUME 87 fL (79.0-98.0); MONOCYTES # (AUTO) 0.8 K/uL (0.0-1.0); MONOCYTES % (AUTO) 9.7 % (1.7-9.3); NEUTROPHILS # (AUTO) 5.8 K/uL (1.8-7.7); NEUTROPHILS % (AUTO) 67.7 % (40.0-70.0); PLATELET COUNT (AUTO) 297 K/uL (130-430); RED BLOOD CELL COUNT(AUTO) 5.08 MIL/uL (4.2-6.2); RED CELL DISTRIBUTION WIDTH 13.8 % (9.0-15.0); WHITE BLOOD COUNT (AUTO) 8.6 K/uL (4.8-10.8)
[2023-04-18 05:04] LABS: ANION GAP 10 (5-15); CALCIUM 8.8 mg/dL (8.4-11.0); CARBON DIOXIDE 25 mmol/L (23-29); CHLORIDE 105 mmol/L (98-107); CREATININE 0.58 mg/dL (0.55-1.30); GLUCOSE 94 mg/dL (74-106); POTASSIUM 3.8 mmol/L (3.5-5.1); SODIUM SERUM 140 mmol/L (136-145); UREA NITROGEN, BLOOD 16 mg/dL (8-21)
[2023-04-18 08:00] VITALS: BP_SYST 204; PULSE 77; RESP 18; TEMP 98.4; O2SAT 95; O2SAT 96
[2023-04-18] MEDS: LOSARTAN POTASSIUM 50 MG TABLET (COZAAR) PO SCH ×2 (08:41→20:50)
[2023-04-18] MEDS: NIFEdipine 30 MG TAB.ER.24 PO SCH (09:07)
[2023-04-18] MEDS: MECLIZINE HCL 25 MG TABLET (ANITVERT) PO SCH ×2 (09:08→20:49)
[2023-04-18] MEDS ORDERED: HYDROCHLOROTHIAZIDE 12.5 MG CAPSULE (HCTZ) PO ONE (10:30)
[2023-04-18] MEDS ORDERED: risperiDONE 1 MG TABLET (RisperDAL) PO PRN (11:30)
[2023-04-18 12:00] VITALS: BP_SYST 174; PULSE 88; RESP 18; TEMP 98.8; O2SAT 98
[2023-04-18] MEDS ORDERED: hydrALAZINE HCL 20 MG/ML VIAL IVP ONE (13:00)
[2023-04-18 16:00] VITALS: BP_SYST 206; PULSE 84; RESP 20; TEMP 98.6; O2SAT 98
[2023-04-18 20:21] VITALS: BP_SYST 124; PULSE 93; RESP 18; TEMP 98.8; O2SAT 94
[2023-04-19 00:23] VITALS: BP_SYST 133; PULSE 87; RESP 18; TEMP 98.4; O2SAT 93
[2023-04-19 05:36] LABS: BASOPHILS % (AUTO) 0.7 % (0.0-2.0); EOSINOPHILS # (AUTO) 0.4 K/uL (0.0-0.4); EOSINOPHILS % (AUTO) 5.7 % (0.0-4.0); HEMATOCRIT 47.5 % (36-48); HEMOGLOBIN 15.5 g/dL (12.0-16.0); LYMPHOCYTES # (AUTO) 1.5 K/uL (1.0-5.5); LYMPHOCYTES % (AUTO) 21.1 % (20.5-51.5); MEAN CORPUSCULAR HEMOGLOBIN 28 pg (27-31); MEAN CORPUSCULAR HGB CONC 33 % (32-36); MEAN CORPUSCULAR VOLUME 87 fL (79.0-98.0); MONOCYTES # (AUTO) 0.7 K/uL (0.0-1.0); MONOCYTES % (AUTO) 10.2 % (1.7-9.3); NEUTROPHILS # (AUTO) 4.4 K/uL (1.8-7.7); NEUTROPHILS % (AUTO) 62.3 % (40.0-70.0); PLATELET COUNT (AUTO) 303 K/uL (130-430); RED BLOOD CELL COUNT(AUTO) 5.48 MIL/uL (4.2-6.2); RED CELL DISTRIBUTION WIDTH 13.6 % (9.0-15.0); WHITE BLOOD COUNT (AUTO) 7.1 K/uL (4.8-10.8)
[2023-04-19 05:55] LABS: ANION GAP 4 (5-15); CALCIUM 9.5 mg/dL (8.4-11.0); CARBON DIOXIDE 27 mmol/L (23-29); CHLORIDE 98 mmol/L (98-107); CREATININE 0.61 mg/dL (0.55-1.30); GLUCOSE 90 mg/dL (74-106); POTASSIUM 3.3 mmol/L (3.5-5.1); SODIUM SERUM 129 mmol/L (136-145); UREA NITROGEN, BLOOD 17 mg/dL (8-21)
[2023-04-19] MEDS: MECLIZINE HCL 25 MG TABLET (ANITVERT) PO SCH ×2 (08:36→20:28)
[2023-04-19] MEDS: NIFEdipine 30 MG TAB.ER.24 PO SCH (08:37)
[2023-04-19] MEDS: LOSARTAN POTASSIUM 50 MG TABLET (COZAAR) PO SCH ×2 (08:37→20:27)
[2023-04-19] MEDS: HYDROCHLOROTHIAZIDE 12.5 MG CAPSULE (HCTZ) PO SCH (08:38)
[2023-04-19 09:57] VITALS: O2SAT 95
[2023-04-19] MEDS ORDERED: METOPROLOL SUCCINATE 25 MG TAB.SR.24H (TOPROL XL) PO ONE (10:00)
[2023-04-19 12:00] VITALS: BP_SYST 169; PULSE 75; RESP 18; TEMP 98.6; O2SAT 94
[2023-04-19 16:00] VITALS: BP_SYST 143; BP_SYST 148; PULSE 57; PULSE 83; RESP 17; RESP 18; TEMP 97.2; TEMP 97.9; O2SAT 94; O2SAT 99
[2023-04-19 19:40] VITALS: BP_SYST 145; PULSE 81; RESP 18; TEMP 97.7; O2SAT 96
[2023-04-19] MEDS: HYDROcodone/ACETAMIN 5-325 MG TAB (NORCO/ VICODIN) PO PRN (20:28)
[2023-04-20 00:50] VITALS: BP_SYST 148; PULSE 74; RESP 18; TEMP 98.4; O2SAT 91
[2023-04-20 06:28] LABS: BASOPHILS % (AUTO) 0.2 % (0.0-2.0); EOSINOPHILS # (AUTO) 0.3 K/uL (0.0-0.4); EOSINOPHILS % (AUTO) 4.5 % (0.0-4.0); HEMATOCRIT 47.3 % (36-48); HEMOGLOBIN 15.6 g/dL (12.0-16.0); LYMPHOCYTES # (AUTO) 1.8 K/uL (1.0-5.5); LYMPHOCYTES % (AUTO) 23.5 % (20.5-51.5); MEAN CORPUSCULAR HEMOGLOBIN 28 pg (27-31); MEAN CORPUSCULAR HGB CONC 33 % (32-36); MEAN CORPUSCULAR VOLUME 86 fL (79.0-98.0); MONOCYTES # (AUTO) 0.8 K/uL (0.0-1.0); MONOCYTES % (AUTO) 10.8 % (1.7-9.3); NEUTROPHILS # (AUTO) 4.6 K/uL (1.8-7.7); PLATELET COUNT (AUTO) 313 K/uL (130-430); RED BLOOD CELL COUNT(AUTO) 5.48 MIL/uL (4.2-6.2); RED CELL DISTRIBUTION WIDTH 13.9 % (9.0-15.0); WHITE BLOOD COUNT (AUTO) 7.6 K/uL (4.8-10.8)
[2023-04-20 06:37] LABS: ANION GAP 7 (5-15); CALCIUM 9.5 mg/dL (8.4-11.0); CARBON DIOXIDE 28 mmol/L (23-29); CHLORIDE 102 mmol/L (98-107); CREATININE 0.75 mg/dL (0.55-1.30); GLUCOSE 93 mg/dL (74-106); POTASSIUM 3.8 mmol/L (3.5-5.1); SODIUM SERUM 137 mmol/L (136-145); UREA NITROGEN, BLOOD 23 mg/dL (8-21)
[2023-04-20 08:00] VITALS: BP_SYST 139; PULSE 83; RESP 16; TEMP 98.3; O2SAT 94
[2023-04-20] MEDS ORDERED: METOPROLOL SUCCINATE 25 MG TAB.SR.24H (TOPROL XL) PO SCH (09:00)
[2023-04-20] MEDS: LOSARTAN POTASSIUM 50 MG TABLET (COZAAR) PO SCH (09:31)
[2023-04-20] MEDS: MECLIZINE HCL 25 MG TABLET (ANITVERT) PO SCH (09:31)
[2023-04-20] MEDS: HYDROCHLOROTHIAZIDE 12.5 MG CAPSULE (HCTZ) PO SCH (09:32)
[2023-04-20] MEDS: NIFEdipine 30 MG TAB.ER.24 PO SCH (09:33)
[2023-04-20] MEDS ORDERED: BISACODYL 10 MG/SUPPOSITORY RC PRN (10:15)
[2023-04-20] MEDS ORDERED: DOCUSATE SODIUM 100 MG CAPSULE PO PRN (10:15)
[2023-04-20 12:00] VITALS: BP_SYST 143; PULSE 73; RESP 18; TEMP 98.8; O2SAT 94
[2023-04-20] MEDS ORDERED: NIFEdipine PO (12:53)
[2023-04-20] MEDS ORDERED: LOSA-415 PO (12:53)
[2023-04-20] MEDS ORDERED: BISACODYL 10 MG/SUPPOSITORY RC ONE (14:30)
[2023-04-20 16:48] VITALS: BP_SYST 130; PULSE 54; RESP 18; TEMP 98.5; O2SAT 94
[2023-04-20 17:00] VITALS: BP_SYST 130; PULSE 54; RESP 18; TEMP 98.5; O2SAT 94
== END 2023-04-20 18:30 | disposition home health service (06) | DRG 305 ==
LOC: SED 11:52 → STU 17:57 → INTOOBSV 17:57 → STU 19:52 → OBSVTOIN 04-18 13:37
PROVIDERS: ADMIT Specialist; ATTEND Specialist
DX: I16.0 Hypertensive urgency (principal); S00.03XA Contusion of scalp, initial encounter; I49.5 Sick sinus syndrome; I10 Essential (primary) hypertension; E78.5 Hyperlipidemia, unspecified; G47.00 Insomnia, unspecified; W18.39XA Other fall on same level, initial encounter; M16.12 Unilateral primary osteoarthritis, left hip; Z79.899 Other long term (current) drug therapy; Y93.89 Activity, other specified; Y92.89 Other specified places as the place of occurrence of the external cause; Y99.8 Other external cause status
CPT/HCPCS: 36415; 70450-TC; 71045; 72125-TC; 72128; 72131; 72192-TC; 76376; 80048; 80053; 82550; 84443; 84484; 85025; 93005; 93306; 96374; 97110-GP; 97116-GP; 97163-GP; 97530-GP; 99285; G0378; J0360; J8597

== ENCOUNTER 2023-06-18 14:27 | Emergency (ER) | payer BC ==
[~2023-06-18] VITALS: Ht 167.6 cm; Wt 90.7 kg
[~2023-06-18 14:27] MED LIST changes: +ESCI20TA38 PO; -FURO-150 PO; +HYDR12.585 PO; +IBUP-1969 PO; +NIFEdipine PO; -POTA20PA4 PO; +ROSU10TA29 PO; +TRAZ-251 PO
[2023-06-18 14:59] VITALS: BP_SYST 184; PULSE 90; RESP 19; TEMP 97.9; O2SAT 99
[2023-06-18] MEDS ORDERED: ACETAMINOPHEN 500 MG TABLET PO ONE (15:15)
== END 2023-06-18 17:43 | disposition left against medical advice (07) ==
LOC: SED 14:27
DX: S00.03XA Contusion of scalp, initial encounter (principal); I10 Essential (primary) hypertension; Z79.899 Other long term (current) drug therapy; W01.0XXA Fall on same level from slipping, tripping and stumbling without subsequent striking against object, initial encounter; Y93.89 Activity, other specified; Y92.89 Other specified places as the place of occurrence of the external cause; Y99.8 Other external cause status
CPT/HCPCS: 70450-TC; 76376; 99284